=== PATIENT | male | born 1995 | race Two or more races ===

== ENCOUNTER 2022-06-27 13:17 | Emergency (ER) | payer MEDICAID ==
[~2022-06-27] VITALS: Ht 175.3 cm; Wt 62.8 kg
[2022-06-27 13:19] VITALS: BP 115/76
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
--- NOTE | 2022-06-27 14:30 | NUR ---
Patient being evaluated by PA ASHLEY at [facility].
[2022-06-27] MEDS ORDERED: ONDANSETRON 4 MG ODT PO ONE (14:50)
[2022-06-27] MEDS ORDERED: LID5T TP (16:02)
[2022-06-27] MEDS ORDERED: ACET-10509 PO (16:02)
[2022-06-27 16:26] VITALS: BP 118/66
--- NOTE | 2022-06-27 16:26 | NUR ---
Patient discharged with v/s stable. Written and verbal after care instructions given. Patient alert, oriented and verbalized understanding of instructions. Ambulatory with steady gait. All questions addressed prior to discharge. ID band removed. Patient advised to follow up with PMD. Rx of Tylenol and Lidocaine Hyd given. Opportunity to ask questions provided and answered. WORK NOTE HANDED TO PATIENT.
== END 2022-06-27 16:26 | disposition home or self-care (01) ==
LOC: MED 13:17
DX: S16.1XXA Strain of muscle, fascia and tendon at neck level, initial encounter (principal); R51.9 Headache, unspecified; Z79.899 Other long term (current) drug therapy; V89.2XXA Person injured in unspecified motor-vehicle accident, traffic, initial encounter; Y93.89 Activity, other specified; Y92.89 Other specified places as the place of occurrence of the external cause; Y99.8 Other external cause status
CPT/HCPCS: 72050; 99283; Q0162

== ENCOUNTER 2022-07-05 06:25 | Emergency (ER) | payer MEDICAID, OTHER ==
[~2022-07-05] VITALS: Ht 175.3 cm; Wt 65.8 kg
[~2022-07-05 06:25] MED LIST: ACET-10509 PO; LID5T TP
[2022-07-05 06:33] VITALS: BP 109/77
--- NOTE | 2022-07-05 06:36 | NUR ---
TO BED AMBULATORY
[2022-07-05 07:12] LABS: APPEARANCE,URINE CLEAR (CLEAR); BILIRUBIN,URINE NEGATIVE (NEGATIVE); BLOOD, URINE TRACE-I (NEGATIVE); COLOR,URINE YELLOW (YELLOW); LEUKOCYTE ESTERASE ,URINE NEGATIVE (NEGATIVE); NITRITE, URINE NEGATIVE (NEGATIVE); UGLUCOSE NEGATIVE (NEGATIVE)
[2022-07-05 07:35] LABS: RBC,URINE 0-5 /HPF (0-5); WBC,URINE 0-5 /HPF (0-5)
[2022-07-05 07:36] LABS: OTHER CASTS, URINE None Seen /LPF (None Seen)
--- NOTE | 2022-07-05 07:36 | NUR ---
27 Y/O MALE BIB SELF C/O BILATERAL FLANK PAIN, NAUSEA AND HEADACHE AND INTERMITTENT FEVERS X4DAYS. TOOK TYLENOL FOR FEVERS, MINIMAL RELIEF WITH PAIN. ALLERGY: SULFA
--- NOTE | 2022-07-05 07:43 | NUR ---
PT AMBULATED TO [facility]
--- NOTE | 2022-07-05 07:46 | NUR ---
DR MILIAN AT PT SIDE FOR EVAL
--- NOTE | 2022-07-05 08:05 | NUR ---
Patient discharged with v/s stable. Written and verbal after care instructions ABOUT FLANK PAIN AND FEVER given and explained. Patient verbalized understanding. Ambulatory with steady gait. All questions addressed prior to discharge. Advised to follow up with PMD.
== END 2022-07-05 08:05 | disposition home or self-care (01) ==
LOC: MED 06:25
DX: R50.9 Fever, unspecified (principal); R10.9 Unspecified abdominal pain; R11.0 Nausea; F17.200 Nicotine dependence, unspecified, uncomplicated; Z88.2 Allergy status to sulfonamides; Z79.899 Other long term (current) drug therapy
CPT/HCPCS: 81001; 99283